=== PATIENT | male | born 1985 | race Caucasian/White ===

== ENCOUNTER 2019-05-27 15:48 | Emergency (ER) | payer SELFPAY ==
[~2019-05-27] VITALS: Ht 167.6 cm; Wt 61.2 kg
[2019-05-27] MEDS ORDERED: ORPH-16 PO (16:21)
[2019-05-27] MEDS ORDERED: MELO7.5T29 PO (16:21)
--- NOTE | 2019-05-27 16:22 | PHYS DOC ---
Past History Past Medical History: No Pertinent History Past Surgical History: No Surgical History Smoking: Non-smoker Alcohol Use: Occasionally Drug Use: None Adult General Chief Complaint Chief Complaint: HIP PAIN HPI HPI Patient is a 34-year-old male presents complaining of left hip pain for the past several weeks. He feels like he may have pulled a muscle at the beginning however it has not gotten better. He has to walk 30 minutes to an from work and is on his feet at work during the day. No numbness or tingling. No trauma. No recent changes in weight. No paresthesias or sensory changes. No loss of bowel or bladder control. It is worse first thing in the morning, gets better during the course of the day as he is able to ambulate.[] Review of Systems Review of Systems Constitutional: Denies fever or chills [] Eyes: Denies change in visual acuity, redness, or eye pain [] HENT: Denies nasal congestion or sore throat [] Respiratory: Denies cough or shortness of breath [] Cardiovascular: No chest pain or palpitations[] GI: Denies abdominal pain, nausea, vomiting, bloody stools or diarrhea [] : Denies dysuria or hematuria [] Musculoskeletal: Denies back pain, see history of present illness[] Integument: Denies rash or skin lesions [] Neurologic: Denies headache, focal weakness or sensory changes [] Endocrine: Denies polyuria or polydipsia [] All other systems were reviewed and found to be within normal limits, except as documented in this note. Allergies Allergies Allergies Coded Allergies Type Severity Reaction Last Updated Verified No Known Drug Allergies 05/27/19 No Physical Exam Physical Exam Constitutional: Well developed, well nourished, no acute distress, non-toxic appearance. [] HENT: Normocephalic, atraumatic, bilateral external ears normal, oropharynx moist, no oral exudates, nose normal. [] Eyes: PERRLA, EOMI, conjunctiva normal, no discharge. [] Neck: Normal range of motion, no tenderness, supple, no stridor. [] Cardiovascular:Heart rate regular rhythm, no murmur [] Lungs & Thorax: Bilateral breath sounds clear to auscultation [] Abdomen: Bowel sounds normal, soft, no tenderness, no masses, no pulsatile masses. Pelvis is stable and 3 planes[] Skin: Warm, dry, no erythema, no rash. [] Back: No tenderness, no CVA tenderness. [] Extremities: Left hip has diffuse tenderness around the hip. No pain with axial loading. Normal gait. He is distally neurovascularly intact. A joint below was evaluated and was normal. The other 3 extremities show: No tenderness, no cyanosis, no clubbing, ROM int act, no edema. [] Neurologic: Alert and oriented X 3, normal motor function, normal sensory function, no focal deficits noted. [] Psychologic: Affect normal, judgement normal, mood normal. [] Current Patient Data Vital Signs Vital Signs Date Time Temp Pulse Resp B/P (MAP) Pulse Ox O2 Delivery O2 Flow Rate FiO2 05/27/19 16:01 98.2 70 18 143/84 (103) 98 Room Air EKG EKG [] Radiology/Procedures Radiology/Procedures [] Course & Med Decision Making Course & Med Decision Making Pertinent Labs and Imaging studies reviewed. (See chart for details) Medical decision making: There is no evidence of a fracture or dislocation. No evidence of neurologic or vascular compromise. No evidence of cauda equina syndrome, cancer, nor other significant illness or condition. ED course: Patient arrived, was placed in bed, and tolerated exam well. D iscussed findings and plan with patient and family who voiced understanding. All questions were answered. He was discharged in improved condition.[] Dragon Disclaimer Dragon Disclaimer This electronic medical record was generated, in whole or in part, using a voice recognition dictation system. Departure Departure: Impression: Primary Impression: Left hip pain Disposition: HOME, SELF-CARE Condition: IMPROVED Referrals: PCP,EARLENE (PCP) Patient Instructions: Hip Exercises, Generic, SportsMed, Hip Pain Additional Instructions: Follow-up with your regular doctor in 2 days. If you do not have regular doctor a list of local clinics will be provided for you. Use a lacrosse ball for myofascial release as we discussed. Lie comfortably on the floor. Place the lacrosse ball under the affected side. Roll across the lacrosse ball, putting weight on your affected side. ... Continue for 30 to 60 seconds. Repeat on other side if necessary. Return to the ER if worsening pain, weakness, loss of bowel or bladder control, or any other concerns. Scripts Orphenadrine Citrate (ORPHENADRINE CITRATE) 100 Mg Tablet.er 100 MG PO BID for BACK PAIN, #20 TAB.SR Prov: ADRIENNE JEFFERSON DO 05/27/19 Meloxicam (MELOXICAM) 7.5 Mg Tablet 7.5 MG PO DAILY for PAIN, #20 TAB Prov: ADRIENNE JEFFERSON DO 05/27/19 ADRIENNE JEFFERSON DO May 27, 2019 16:22
[2019-05-27 16:57] VITALS: BP 143/84
== END 2019-05-27 16:55 | disposition home or self-care (01) ==
LOC: ER 15:48
DX: M25.552 Pain in left hip (principal)
CPT/HCPCS: 99283

== ENCOUNTER 2020-10-18 17:25 | Emergency (ER) | payer SELFPAY ==
[~2020-10-18] VITALS: Ht 167.6 cm; Wt 72.5 kg
[~2020-10-18 17:25] MED LIST: MELO7.5T29 PO; ORPH-16 PO
[2020-10-18] MEDS: ONDANSETRON ODT 4 MG TAB.RAPDIS PO ONE (18:40)
[2020-10-18 19:04] LABS: BASO % 1 % (0-3); EOS # 0.1 x10^3/uL (0.0-0.7); EOS % 1 % (0-3); HEMATOCRIT 43.8 % (39.0-53.0); HEMOGLOBIN 14.5 g/dL (13.0-17.5); LYMPH # 1.1 x10^3/uL (1.0-4.8); LYMPH % 18 % (24-48); MEAN CORPUSCULAR HEMOGLOBIN 30 pg (25-35); MEAN CORPUSCULAR HGB CONC 33 g/dL (31-37); MEAN CORPUSCULAR VOLUME 91 fL (79-100); MONO # 0.8 x10^3/uL (0.0-1.1); MONO % 12 % (0-9); NEUT # 4.2 x10^3uL (1.8-7.7); NEUT % 69 % (31-73); PLATELET COUNT 214 x10^3/uL (140-400); RED BLOOD COUNT 4.81 x10^6/uL (4.30-5.70); WHITE BLOOD COUNT 6.2 x10^3/uL (4.0-11.0)
--- NOTE | 2020-10-18 19:04 | PHYS DOC ---
Past History Past Medical History: Cancer Past Surgical History: Other Additional Past Surgical Histo: Testical Left Smoking: Non-smoker Alcohol Use: None Drug Use: None General Adult EDM: Chief Complaint: NAUSEA/VOMITING/DIARRHEA HPI: HPI: Patient is a 35-year-old male who presents with nausea, vomiting, dysuria x3 days. Patient denies abdominal pain or diarrhea. Patient denies taking anything at home for nausea or pain. Patient denies any health history. Patient did have testicle removed due to testicular cancer 5 years ago. Review of Systems: Review of Systems: Constitutional: Denies fever or chills Eyes: Denies change in visual acuity HENT: Denies nasal congestion or sore throat Respiratory: Denies cough or shortness of breath Cardiovascular: Denies chest pain or edema GI: Denies abdominal pain, diarrhea. Reports nausea and vomiting x3 days : Reports dysuria Musculoskeletal: Denies back pain or joint pain Integument: Denies rash Neurologic: Denies headache, focal weakness or sensory changes Endocrine: Denies polyuria or polydipsia Lymphatic: Denies swollen glands Psychiatric: Denies depression or anxiety Current Medications: Current Meds: Current Medications Medications (Trade) Dose Ordered Sig/Astrid Start Time Stop Time Status Last Admin Dose Admin Ondansetron HCl (Zofran Odt) 4 mg 1X ONCE 10/18/20 18:30 10/18/20 18:38 DC 10/18/20 18:40 4 MG Allergies: Allergies: Allergies Coded Allergies Type Severity Reaction Last Updated Verified No Known Drug Allergies 05/27/19 No Physical Exam: PE: Constitutional: Well developed, well nourished, no acute distress, non-toxic appearance. [] HENT: Normocephalic, atraumatic, bilateral external ears normal, oropharynx moist, no oral exudates, nose normal. [] Eyes: PERRLA, EOMI, conjunctiva normal, no discharge. [] Neck: Normal range of motion, no tenderness, supple, no stridor. [] Cardiovascular:Heart rate regular rhythm, no murmur [] Lungs & Thorax: Bilateral breath sounds clear to auscultation [] Abdomen: Bowel sounds normal, soft, no tenderness, no masses, no pulsatile masses. [] Skin: Warm, dry, no erythema, no rash. [] Back: No tenderness, no CVA tenderness. [] Extremities: No tenderness, no cyanosis, no clubbing, ROM intact, no edema. [] Neurologic: Alert and oriented X 3, normal motor function, normal sensory function, no focal deficits noted. [] Psychologic: Affect normal, judgement normal, mood normal. [] Current Patient Data: Vital Signs: Vital Signs Date Time Temp Pulse Resp B/P (MAP) Pulse Ox O2 Delivery O2 Flow Rate FiO2 10/18/20 17:29 98.9 81 16 126/84 (98) 96 Room Air EKG: EKG: [] Radiology/Procedures: Radiology/Procedures: [] Heart Score: Risk Factors: Risk Factors: DM, Current or recent (<one month) smoker, HTN, HLP, family history of CAD, obesity. Risk Scores: Score 0 - 3: 2.5% MACE over next 6 weeks - Discharge Home Score 4 - 6: 20.3% MACE over next 6 weeks - Admit for Clinical Observation Score 7 - 10: 72.7% MACE over next 6 weeks - Early Invasive Strategies Course & Med Decision Making: Course & Med Decision Making Pertinent Labs and Imaging studies reviewed. (See chart for details) []Patient is a 35-year-old male who presents with nausea, vomiting, dysuria x3 days. Patient denies abdominal pain or diarrhea. Patient denies taking anything at home for nausea or pain. Patient denies any health history. Patient did have testicle removed due to testicular cancer 5 years ago. BMP, CBC, UA ordered. Patient given Zofran for nausea. Patient also states "I feel like I have a lump on my right breast near my nipple". "It is painful to the touch". "I do not have any insurance or a primary care physician". Gave patient a referral for outpatient follow-up with [facility] and also [facility] for further evaluation. He is also requesting a work note since he missed work today because of nausea and vomiting. Labs within normal range. UA negative for infection. Patient is hemodynamically stable at discharge and able to ambulate on his own. No vomiting in the ER and able to pass PO water challenge. Dragon Disclaimer: Dragon Disclaimer: This electronic medical record was generated, in whole or in part, using a voice recognition dictation system. Departure Departure: Impression: Primary Impression: Viral syndrome Disposition: 01 DC HOME SELF CARE/HOMELESS Condition: GOOD Patient Instructions: Nausea and Vomiting, [id number] Additional Instructions: You was seen in the emergency room today for nausea and vomiting. I have written you a prescription for Zofran to use at home for nausea as needed. I am also giving you referral to [facility] for follow up. Please return to the ED with worsening symptoms or concerns. Otherwise please contact [facility] to address your other concerns. [facility] [phone] [place] [phone] EMERGENCY DEPARTMENT GENERAL DISCHARGE INSTRUCTIONS Thank you for coming to [facility] (ED) today and trusting us with you care. We trust that you had a positivie experience in our Emergency Department. If you wish to speak to the department management, you may call the director at [phone]. YOUR FOLLOW UP INSTRUCTIONS ARE FOLLOWS: 1. Do you have a private Doctor? If you do not have a private doctor, please ask for a resource list of physicians or clinics that may be able to assist you with follow up care. 2. The Emergency Physician has interpreted your x-rays. The X-Ray specialist will also review them. If there is a change in the findings, you will be notified in 48 hours when at all possible. 3. A lab test or culture has been done, your results will be reviewed and you will be notified if you need a change in treatment. ADDITIONAL INSTRUCTIONS AND INFORMATION: 1. Your care today has been supervised by a physician who is specially trained in emergency care. Many problems require more than one evaluation for a complete diagnosis and treatment. We recommend that you schedule your follow up appointment as recommended to ensure complete treatment of you illness or injury. If you are unable to obtain follow up care and continue to have a problem, or if your condition worsens, we recommend that you return to the ED. 2. We are not able to safely determine your condition over the phone nor are we able to give sound medical advice over the phone. For these safety reasons, if you call for medical advice we will ask you to come to the ED for further evaluation. 3. If you have any questions regarding these discharge instructions please call the ED at [phone]. SAFETY INFORMATION: In the interest of safety, wellness, and injury prevention; we encourage you to wear your sealbelt, if you smoke; quite smoking, and we encourage family to use a protective helmet for bicycling and other sporting events that present an increased risk for head injury. IF YOUR SYMPTOMS WORSEN OR NEW SYMPTOMS DEVELOP, OR YOU HAVE CONCERNS ABOUT YOUR CONDITION; OR IF YOUR CONDITION WORSENS WHILE YOU ARE WAITING FOR YOUR FOLLOW UP APPOINTMENT; EITHER CONTACT YOUR PRIMARY CARE DOCTOR, THE PHYSICIAN WHOSE NAME AND NUMBER YOU WERE GIVEN, OR RETURN TO THE ED IMMEDIATELY. Scripts Ondansetron Hcl (ZOFRAN) 4 Mg Tablet 4 MG PO TID PRN PRN for NAUSEA, #9 TAB Prov: SAM CONTRERAS APRN 10/18/20 SAM CONTRERAS APRN Oct 18, 2020 19:04
[2020-10-18 19:19] LABS: CREATININE 0.9 mg/dL (0.7-1.3); POTASSIUM 3.7 mmol/L (3.5-5.1)
[2020-10-18 19:27] VITALS: BP 123/81
[2020-10-18] MEDS ORDERED: ONDA4TAB7 PO (20:07)
[2020-10-18 20:21] LABS: CLARITY,URINE HAZY; COLOR,URINE YELLOW; GLUCOSE,URINE NEG (NEG)
[2020-10-18 20:22] LABS: BILIRUBIN,URINE SMALL (NEG)
[2020-10-18 20:23] LABS: NITRITE,URINE NEG (NEG)
[2020-10-18 20:26] LABS: AMORPHOUS SEDIMENT,UR PRESENT /HPF; BACTERIA,URINE 0 /HPF (0-FEW); RBC,URINE 0 /HPF (0-2); WBC,URINE 0 /HPF (0-4)
== END 2020-10-18 20:40 | disposition home or self-care (01) ==
LOC: ER 17:25
DX: B34.9 Viral infection, unspecified (principal); R30.0 Dysuria
CPT/HCPCS: 36415; 80048; 81001; 85025; 99283; Q0162